=== PATIENT | male | born 1950 | race Caucasian/White ===

== ENCOUNTER → 2017-01-14 | Outpatient (CLI) | payer MEDICARE, BC ==
[~2017-01-14] MED LIST: NORCO 325 MG-51 TAB PO
[2017-01-14 17:24] LABS: PROTHROMBIN TIME 11.2 SECONDS (9.7-12.8)
[2017-01-14 18:12] LABS: HIV 1/2 Antibodies Non-Reactive; HIV-1p24 Antigen Non-Reactive
== END ==
LOC: COL.LAB 16:37
PROVIDERS: Orthopaedic Surgery
DX: Z01.812 Encounter for preprocedural laboratory examination (principal); Z79.01 Long term (current) use of anticoagulants; M17.12 Unilateral primary osteoarthritis, left knee

== ENCOUNTER → 2018-06-19 | Outpatient (CLI) | payer MEDICARE, BC | LOC: COL.RAD 09:00 | DX: Z13.6 Encounter for screening for cardiovascular disorders (principal); Z87.891 Personal history of nicotine dependence ==

== ENCOUNTER 2022-12-27 02:24 | Emergency (ER) | payer MEDICARE, BC ==
[~2022-12-27] VITALS: Ht 170.2 cm; Wt 113.6 kg
[2022-12-27 02:29] VITALS: TEMP 98.3
[2022-12-27 03:40] VITALS: BP 132/81; PULSE 80
== END 2022-12-27 03:42 | disposition home or self-care (01) ==
LOC: COL.ER 02:24
DX: S09.90XA Unspecified injury of head, initial encounter (principal); S61.411A Laceration without foreign body of right hand, initial encounter; S01.81XA Laceration without foreign body of other part of head, initial encounter; W01.190A Fall on same level from slipping, tripping and stumbling with subsequent striking against furniture, initial encounter